=== PATIENT | male | born 1985 | race Caucasian/White ===

== ENCOUNTER 2022-07-27 11:31 | Emergency (ER) | payer SELFPAY ==
[~2022-07-27] VITALS: Ht 190.5 cm; Wt 98.9 kg
[2022-07-27] MEDS ORDERED: PANTOPRAZOLE SO40 MG PO (13:02)
== END 2022-07-27 13:38 | disposition home or self-care (01) ==
LOC: FSED 11:55
DX: R11.2 Nausea with vomiting, unspecified (principal); K20.90 Esophagitis, unspecified without bleeding
CPT/HCPCS: 80048; 80076; 81003; 85025; 99283